=== PATIENT | female | born 1990 | race Caucasian/White ===

== ENCOUNTER → 2016-11-04 | Outpatient (CLI) | payer BC, OTHER ==
[2014-03-10 19:13] VITALS: BP 122/90
[2016-11-04 14:25] LABS: BILIRUBIN,URINE NEGATIVE (NEGATIVE); BLOOD/HEMOGLOBIN,URINE 2+ (NEGATIVE); GLUCOSE, URINE NEGATIVE (NEGATIVE); KETONES,URINE NEGATIVE (NEGATIVE); LEUKOCYTE ESTERASE ,URINE 2+ (NEGATIVE); NITRITES,URINE NEGATIVE (NEGATIVE); PH,URINE 6.5 (5.0 - 8.0); PROTEIN,URINE NEGATIVE (NEGATIVE); UROBILINOGEN,URINE NORMAL (NORMAL)
[2016-11-04 14:26] LABS: APPEARANCE,URINE CLEAR (CLEAR); BACTERIA,URINE NEGATIVE /HPF (NEGATIVE); COLOR,URINE PALE YELLOW (YELLOW); RBC,URINE 0 /HPF (NEGATIVE); SQUAMOUS EPITHELIAL CELL,UR FEW /HPF (NEGATIVE)
[2016-11-04 14:29] LABS: BASOPHILS % (AUTO) 0.2 % (0.2-1.0); EOSINOPHILS # (AUTO) 0.1 x10^3/uL (0.0-0.2); EOSINOPHILS % (AUTO) 0.7 % (0.9-2.9); HEMATOCRIT 33.3 % (36.0-47.0); HEMOGLOBIN 10.9 g/dL (12.0-16.0); LYMPHOCYTES # (AUTO) 1.6 X10^3/uL (1.3-2.9); LYMPHOCYTES % (AUTO) 14.5 % (21.0-51.0); MEAN CORPUSCULAR HEMOGLOBIN 28.4 pg (27.0-34.0); MEAN CORPUSCULAR HGB CONC 32.7 g/dL (33.0-35.0); MEAN CORPUSCULAR VOLUME 86.7 fL (80.0-100.0); MEAN PLATELET VOLUME 8.5 fL (7.4-11.0); MONOCYTES # (AUTO) 0.9 x10^3/uL (0.3-0.8); MONOCYTES % (AUTO) 7.6 % (0.0-13.0); NEUTROPHILS # (AUTO) 8.7 x10^3/uL (2.2-4.8); PLATELET COUNT 253 X10^3/uL (150.0-450.0); RED BLOOD COUNT 3.84 X10^6/uL (3.5-5.4); RED CELL DISTRIBUTION WIDTH 14.2 % (11.6-16.5); WHITE BLOOD COUNT 11.3 X10^3/uL (3.6-10.0)
[2016-11-04 14:33] LABS: BLOOD UREA NITROGEN 9 mg/dL (7-18); CALCIUM 8.8 mg/dL (8.5-10.1); CARBON DIOXIDE 26.6 mmol/L (21-32); CHLORIDE 105 mmol/L (98-107); CREATININE 0.66 mg/dL (0.55-1.02); GLUCOSE 82 mg/dL (65-99); SODIUM 139 mmol/L (136-145); eGFR BLACK RACES > 60 (>60); eGFR NON BLACK RACES > 60 (>60)
== END ==
LOC: LAB 13:58
PROVIDERS: ATTEND Specialist
DX: Z01.818 Encounter for other preprocedural examination (principal); Z34.83 Encounter for supervision of other normal pregnancy, third trimester
CPT/HCPCS: 36415; 80048; 81001; 85025; 86592; 86850; 86900; 86901

== ENCOUNTER 2016-11-05 06:36 | Inpatient (IN) | payer BC, OTHER ==
[~2016-11-05 06:36] MED LIST: D5 1/2 NS 1000 ML 1,000 ML IV ONE; D5 1/2 NS 1000 ML 1,000 ML IV SCH; D5 1/2 NS 1000ML W PITOCIN 20 U/L 1,000 ML IV ONE; D5LR 1000ML W PITOCIN 10 U/L 1,000 ML IV ONE; MORPHINE SULFATE INJ 2 MG IVP PRN; NUBAIN INJ 200 MG VIAL MULTIDOSE IVP PRN; PHENERGAN INJ 25 MG IV PRN; PITOCIN 10 UNITS in D5 LR 1000 ML 1,000 ML IV PRN; PITOCIN IVP ONE; REGLAN INJ 10 MG VIAL IVP PRN
[2016-11-05] MEDS ORDERED: ILOTYCIN OPHTH OINT ONE (08:00)
[2016-11-05] MEDS ORDERED: AQUA-MEPHYTON NEONATAL IM ONE (08:00)
--- NOTE | 2016-11-05 08:03 | DR.OB ---
OB Quick Note - Assessment/Plan Assessment/Plan: L&D 11/05/16 at 7:55am Pitocin=3mu/min. S-No complaint except CTX. O-Afebrile,VSS FFT=170 with good LTV, +accel, no decel. CTX=q 1 1/2 to 2 min., mod. by palpation CVX=2cm/50%/-1/VTX SROM with clear fluid. IUPC and FSE placed. A-IUP at 39 2/7 weeks with SROM P-Cont. pitocin augmentation Anticipate
[2016-11-05] MEDS ORDERED: PHENERGAN INJ 25 MG ONE (09:33)
[2016-11-05] MEDS ORDERED: NUBAIN INJ 10 ONE (09:33)
[2016-11-05] MEDS ORDERED: MORPHINE SULFATE INJ 2 MG ONE (10:25)
[2016-11-05] MEDS ORDERED: LR 1000 ML IV 1,000 ML IV ONE ×2 (10:43→11:00)
[2016-11-05] MEDS ORDERED: FENTANYL INJ 100 mcg ONE (10:51)
[2016-11-05] MEDS ORDERED: NAROPIN EPIDURAL 0.2% + FENTANYL 90MCG 60 ML EPI ONE (10:51)
[2016-11-05] MEDS ORDERED: NAROPIN EPIDURAL 0.2% 97 ML with FENTANYL INJ 250 mcg 150 MCG EPI PRN ×2 (11:00)
[2016-11-05] MEDS ORDERED: PHENERGAN INJ 25 MG IV PRN ×2 (12:30→13:41)
[2016-11-05] MEDS ORDERED: MOTRIN TAB 800 MG PO PRN (12:30)
--- NOTE | 2016-11-05 12:36 | DR.OB ---
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 Head delivered over intact perineum. Nuchal cord x 1 reduced. Nose and mouth bulb suctioned. Body delivered over intact perineum. Cord clamped x 2 and cut. Infant handed to attendant. Cord sent for gases. Placenta delivered spontaneously / intact / 3 vessel cord. No CVX / vaginal / perineal tears. Viable male , VTX/OA, wt=6'6" and 9/9, stable to NBN. Mother stable to RR. ULH=[id number].
[2016-11-05] MEDS ORDERED: D5 1/2 NS 1000 ML 1,000 ML with PITOCIN 20 UNITS IV SCH ×2 (13:00)
[2016-11-05] MEDS ORDERED: DERMOPLAST SPRAY TOP PRN (13:41)
[2016-11-05] MEDS ORDERED: ADACEL TDaP IM ONE (13:41)
[2016-11-05] MEDS ORDERED: MILK OF MAGNESIA PO PRN (13:41)
[2016-11-05] MEDS ORDERED: REGLAN INJ 10 MG VIAL IVP PRN (13:41)
[2016-11-05] MEDS: D5 1/2 NS 1000 ML 1,000 ML with PITOCIN 20 UNITS IV SCH ×4 (14:22→21:02)
[2016-11-05] MEDS: MOTRIN TAB 800 MG PO PRN (17:37)
[2016-11-05] MEDS: ZANTAC PO SCH (21:02)
[2016-11-06] MEDS: D5 1/2 NS 1000 ML 1,000 ML with PITOCIN 20 UNITS IV SCH ×2 (05:45)
[2016-11-06] MEDS: MOTRIN TAB 800 MG PO PRN (07:10)
[2016-11-06 07:52] LABS: HEMATOCRIT 31.4 % (36.0-47.0); HEMOGLOBIN 10.3 g/dL (12.0-16.0)
[2016-11-06] MEDS: ZANTAC PO SCH (08:03)
[2016-11-06] MEDS ORDERED: PRENATAL PLUS PO SCH (09:00)
[2016-11-06 11:58] VITALS: BP 115/82
== END 2016-11-06 14:00 | disposition home or self-care (01) | DRG 775 ==
LOC: LD 06:36 → MED/SURG 13:52
PROVIDERS: ADMIT Specialist; ATTEND Specialist
PROC: 10E0XZZ Delivery of Products of Conception, External Approach (ICD-10-PCS; principal; 2016-11-05)
PROC: 00HU33Z Insertion of Infusion Device into Spinal Canal, Percutaneous Approach (ICD-10-PCS; 2016-11-05)
DX: O80 Encounter for full-term uncomplicated delivery (principal); Z37.0 Single live birth; Z3A.39 39 weeks gestation of pregnancy
CPT/HCPCS: 09167; 36415; 59409; 85014; 85018; A4216; S0197; J2270; J2300; J2550; J2590; J2765; J2795; J3010; J3430; J7042; J7120